=== PATIENT | female | born 1980 | race African-American/Black ===

== ENCOUNTER 2016-10-20 23:39 | Emergency (ER) | payer OTHER ==
[2016-10-20] MEDS ORDERED: ACETAMINOPHEN 325 MG TAB ONE (23:46)
[2016-10-21] MEDS ORDERED: AZITHROMYCIN 250 MG TAB ONE (01:51)
[2016-10-21] MEDS ORDERED: LEVOFLOXACIN 500 MG TAB ONE (01:51)
== END 2016-10-21 02:01 | disposition home or self-care (01) ==
LOC: ER 23:39
DX: R50.9 Fever, unspecified (principal); J15.9 Unspecified bacterial pneumonia
CPT/HCPCS: 36415; 71020; 80053; 83605; 85025; 87040; 87804; 87880